=== PATIENT | male | born 1950 | race Caucasian/White ===

== ENCOUNTER 2024-12-29 13:03 | Inpatient (IN) ==
[2024-12-29] MEDS: 0.9 % SODIUM CHLORIDE 1,000 ML IV ONE ×3 (13:52→16:49)
[2024-12-29 14:06] LABS: Basophils # (Auto) 0.01 K/mcL (0.00-0.30); Basophils % (Auto) 0.1 % (0.0-2.0); Eosinophils # (Auto) 0 K/mcL (0.00-0.70); Eosinophils % (Auto) 0 % (0.0-7.0); Hematocrit 52.1 % (40.1-51.0); Hemoglobin 17.8 g/dL (13.7-17.5); Lymphocytes # (Auto) 0.64 K/mcL (1.50-4.80); Lymphocytes % (Auto) 5.3 % (15.5-49.0); Mean Corpuscular HGB Conc 34.2 g/dL (31.0-36.0); Monocytes # (Auto) 0.21 K/mcL (0.10-0.90); Monocytes % (Auto) 1.7 % (1.0-12.0); Neutrophils % (Auto) 92.7 % (38.0-78.0); Platelet Count 203 K/mcL (140-440); RBC 5.72 M/mcL (4.63-6.08); WBC 12.2 K/mcL (4.5-11.0)
[2024-12-29 14:40] LABS: Thyroid Stimulating Hormone 1.32 uIU/mL (0.27-5.01)
[2024-12-29 15:04] LABS: ALT/SGPT 37 U/L (<40); AST/SGOT 20 U/L (<40); Albumin 4.4 gm/dL (3.2-5.2); Albumin/Globulin Ratio 1.3 (1.0-2.3); Alkaline Phosphatase 147 U/L (39-117); Anion Gap 27.0 (8.0-16.0); Bilirubin,Total 1.0 mg/dL (0.1-1.0); Blood Urea Nitrogen 65 mg/dL (8-23); Calcium 10.6 mg/dL (8.6-10.4); Carbon Dioxide 18 mmol/L (22-30); Chloride 83 mmol/L (96-108); Globulin 3.3 gm/dL (2.2-3.7); Glucose 1155 mg/dL (70-105); Potassium 4.3 mmol/L (3.3-5.1); Sodium 128 mmol/L (133-145)
[2024-12-29] MEDS: INSULIN REGULAR, HUMAN 1 UNIT/0.01 ML UNIT IV ONE (15:14)
[2024-12-29 16:15] LABS: Bacteria,Urine Rare /hpf (0); Bilirubin,Urine Negative (Negative); Color,Urine Yellow; Glucose,Urine (UA) >=1000 mg/dL (Negative); Ketones,Urine 15 mg/dL (Negative); Leukocyte Esterase,Urine Negative /uL (Negative); Mucus,Urine Few /hpf; PH,Urine 5.0 (5.0-9.0); Protein,Urine 100 mg/dL (Negative); Specific Gravity,Urine 1.010 (1.000-1.035); Urobilinogen,Urine Normal
[2024-12-29] MEDS: INSULIN REGULAR, HUMAN 50 UNIT in 0.9 % SODIUM CHLORIDE 99.5 ML IV SCH (16:40)
[2024-12-29 17:42] LABS: Estimated Average Glucose(eAG) 381.0 mg/dL; Hemoglobin A1C 14.9 % Hgb (4.0-6.0)
[2024-12-29 19:25] LABS: Anion Gap 18.0 (8.0-16.0); Blood Urea Nitrogen 58 mg/dL (8-23); Calcium 10.0 mg/dL (8.6-10.4); Carbon Dioxide 20 mmol/L (22-30); Chloride 101 mmol/L (96-108); Glucose 659 mg/dL (70-105); Potassium 3.5 mmol/L (3.3-5.1); Sodium 139 mmol/L (133-145)
[2024-12-29] MEDS ORDERED: ACETAMINOPHEN 325 MG TABLET PO PRN (19:29)
[2024-12-29] MEDS: ONDANSETRON 4 MG/2 ML VIAL ONE (19:50)
[2024-12-29] MEDS: ONDANSETRON 4 MG/2 ML VIAL IV PRN (19:50)
[2024-12-29] MEDS: 0.45 % SODIUM CHLORIDE 1,000 ML IV SCH (20:00)
[2024-12-29 20:07] LABS: Creatine Kinase 104.0 U/L (24-195)
[2024-12-29] MEDS: HEPARIN 5,000 UNIT/ML VIAL SQ SCH (20:32)
[2024-12-29] MEDS: NYSTATIN 500,000 UNITS/5 ML ORAL.SUSP SSW SCH (20:32)
[2024-12-29 20:34] LABS: Albumin 4.0 gm/dL (3.2-5.2); Anion Gap 19.0 (8.0-16.0); Blood Urea Nitrogen 59.0 mg/dL (8-23); Calcium 10.0 mg/dL (8.6-10.4); Carbon Dioxide 19.0 mmol/L (22-30); Chloride 101.0 mmol/L (96-108); Glucose 664.0 mg/dL (70-105); Phosphorous 2.3 mg/dL (2.5-4.5); Potassium 3.5 mmol/L (3.3-5.1); Sodium 139.0 mmol/L (133-145)
[2024-12-29] MEDS: 0.9 % SODIUM CHLORIDE 10 ML SYRINGE IV SCH (20:56)
[2024-12-29] MEDS: INSULIN REGULAR, HUMAN 1 UNIT/0.01 ML UNIT ONE (21:59)
[2024-12-30 01:02] LABS: Albumin 4.1 gm/dL (3.2-5.2); Anion Gap 15.0 (8.0-16.0); Blood Urea Nitrogen 54 mg/dL (8-23); Calcium 10.3 mg/dL (8.6-10.4); Carbon Dioxide 22 mmol/L (22-30); Chloride 110 mmol/L (96-108); Glucose 322 mg/dL (70-105); Phosphorous 2.5 mg/dL (2.5-4.5); Potassium 3.5 mmol/L (3.3-5.1); Sodium 147 mmol/L (133-145)
[2024-12-30] MEDS ORDERED: DEXTROSE 50% 50 ML VIAL IV PRN (01:25)
[2024-12-30] MEDS ORDERED: DEXTROSE 31 GM ORAL.SUSP PO PRN (01:25)
[2024-12-30] MEDS: INSULIN GLARGINE, HUMAN 1 UNIT/0.01 ML SQ ONE ×2 (01:29→01:33)
[2024-12-30] MEDS: INSULIN LISPRO 1 UNIT/0.01 ML UNIT SQ SCH ×3 (02:17→16:42)
[2024-12-30] MEDS: INSULIN LISPRO 1 UNIT/0.01 ML UNIT SQ ONE ×4 (02:33→07:53)
[2024-12-30 03:39] LABS: Basophils # (Auto) 0.04 K/mcL (0.00-0.30); Basophils % (Auto) 0.3 % (0.0-2.0); Eosinophils # (Auto) 0.03 K/mcL (0.00-0.70); Eosinophils % (Auto) 0.2 % (0.0-7.0); Hematocrit 49.5 % (40.1-51.0); Hemoglobin 16.8 g/dL (13.7-17.5); Lymphocytes # (Auto) 1.66 K/mcL (1.50-4.80); Lymphocytes % (Auto) 12.0 % (15.5-49.0); Mean Corpuscular HGB Conc 33.9 g/dL (31.0-36.0); Monocytes # (Auto) 1.01 K/mcL (0.10-0.90); Monocytes % (Auto) 7.3 % (1.0-12.0); Neutrophils % (Auto) 79.9 % (38.0-78.0); Platelet Count 194 K/mcL (140-440); RBC 5.43 M/mcL (4.63-6.08); WBC 13.8 K/mcL (4.5-11.0)
[2024-12-30 03:56] LABS: Albumin 3.9 gm/dL (3.2-5.2); Anion Gap 15.0 (8.0-16.0); Blood Urea Nitrogen 55 mg/dL (8-23); Calcium 9.9 mg/dL (8.6-10.4); Carbon Dioxide 22 mmol/L (22-30); Chloride 109 mmol/L (96-108); Glucose 232 mg/dL (70-105); Phosphorous 3.6 mg/dL (2.5-4.5); Potassium 3.5 mmol/L (3.3-5.1); Sodium 146 mmol/L (133-145)
[2024-12-30 08:31] LABS: Albumin 3.8 gm/dL (3.2-5.2); Anion Gap 15.0 (8.0-16.0); Blood Urea Nitrogen 53 mg/dL (8-23); Calcium 9.8 mg/dL (8.6-10.4); Carbon Dioxide 21 mmol/L (22-30); Chloride 108 mmol/L (96-108); Glucose 312 mg/dL (70-105); Phosphorous 3.2 mg/dL (2.5-4.5); Potassium 3.7 mmol/L (3.3-5.1); Sodium 144 mmol/L (133-145)
[2024-12-30] MEDS: INSULIN GLARGINE, HUMAN 1 UNIT/0.01 ML SQ SCH (08:54)
[2024-12-30] MEDS ORDERED: INSULIN GLARGINE, HUMAN 1 UNIT/0.01 ML SQ SCH (09:00)
[2024-12-30] MEDS ORDERED: LIDOCAINE VISCOUS 2% 15 ML UNIT DOSE CUP PO PRN (10:20)
[2024-12-30] MEDS: PANTOPRAZOLE 40 MG PACKET PO SCH (11:24)
[2024-12-30] MEDS: FLUCONAZOLE 100 MG TABLET PO ONE (11:38)
[2024-12-30] MEDS: PANTOPRAZOLE 40 MG VIAL IV SCH (11:38)
[2024-12-30 12:03] LABS: Albumin 3.8 gm/dL (3.2-5.2); Anion Gap 13.0 (8.0-16.0); Blood Urea Nitrogen 50 mg/dL (8-23); Calcium 9.6 mg/dL (8.6-10.4); Carbon Dioxide 22 mmol/L (22-30); Chloride 107 mmol/L (96-108); Glucose 362 mg/dL (70-105); Phosphorous 2.6 mg/dL (2.5-4.5); Potassium 3.7 mmol/L (3.3-5.1); Sodium 142 mmol/L (133-145)
[2024-12-30 16:09] LABS: Albumin 3.7 gm/dL (3.2-5.2); Anion Gap 12.0 (8.0-16.0); Blood Urea Nitrogen 47 mg/dL (8-23); Calcium 9.5 mg/dL (8.6-10.4); Carbon Dioxide 23 mmol/L (22-30); Chloride 107 mmol/L (96-108); Glucose 289 mg/dL (70-105); Phosphorous 2.2 mg/dL (2.5-4.5); Potassium 3.5 mmol/L (3.3-5.1); Sodium 142 mmol/L (133-145)
[2024-12-30] MEDS: ADENOSINE 3 MG/ML VIAL IV ONE ×2 (16:24)
[2024-12-30] MEDS: POTASSIUM CHLORIDE 20 MEQ TABLET PO ONE ×2 (16:42→16:43)
[2024-12-30] MEDS: LACTOPEROXI/GLUC OXID/POT THIO 1 EACH GEL..EA. TOPICAL PRN (16:43)
[2024-12-30] MEDS: METOPROLOL SUCCINATE 50 MG TAB.XL.24H PO SCH ×2 (17:18→17:19)
[2024-12-31 06:31] LABS: Basophils # (Auto) 0.03 K/mcL (0.00-0.30); Basophils % (Auto) 0.3 % (0.0-2.0); Eosinophils # (Auto) 0.10 K/mcL (0.00-0.70); Eosinophils % (Auto) 1.1 % (0.0-7.0); Hematocrit 49.3 % (40.1-51.0); Hemoglobin 16.4 g/dL (13.7-17.5); Lymphocytes # (Auto) 2.04 K/mcL (1.50-4.80); Lymphocytes % (Auto) 23.2 % (15.5-49.0); Mean Corpuscular HGB Conc 33.3 g/dL (31.0-36.0); Monocytes # (Auto) 0.55 K/mcL (0.10-0.90); Monocytes % (Auto) 6.3 % (1.0-12.0); Neutrophils % (Auto) 68.9 % (38.0-78.0); Platelet Count 142 K/mcL (140-440); RBC 5.22 M/mcL (4.63-6.08); WBC 8.8 K/mcL (4.5-11.0)
[2024-12-31 07:39] LABS: ALT/SGPT 38 U/L (<40); AST/SGOT 33 U/L (<40); Albumin 3.5 gm/dL (3.2-5.2); Albumin/Globulin Ratio 1.3 (1.0-2.3); Alkaline Phosphatase 72 U/L (39-117); Anion Gap 14.0 (8.0-16.0); Bilirubin,Direct 0.3 mg/dL (<0.3); Bilirubin,Total 0.9 mg/dL (0.1-1.0); Blood Urea Nitrogen 42 mg/dL (8-23); Calcium 9.2 mg/dL (8.6-10.4); Carbon Dioxide 21 mmol/L (22-30); Chloride 107 mmol/L (96-108); Globulin 2.7 gm/dL (2.2-3.7); Glucose 314 mg/dL (70-105); Phosphorous 3.3 mg/dL (2.5-4.5); Potassium 3.8 mmol/L (3.3-5.1); Sodium 142 mmol/L (133-145); Triglycerides 418 mg/dL (<150); Uric Acid 9.9 mg/dL (2.5-8.0)
[2024-12-31] MEDS: INSULIN LISPRO 1 UNIT/0.01 ML UNIT SQ SCH ×2 (07:43→07:45)
[2024-12-31] MEDS: INSULIN GLARGINE, HUMAN 1 UNIT/0.01 ML SQ SCH (08:55)
[2024-12-31] MEDS: ATORVASTATIN 10 MG TABLET PO SCH (08:56)
[2024-12-31] MEDS: FINASTERIDE 5 MG TABLET PO SCH (08:56)
[2024-12-31] MEDS: LEVOTHYROXINE 25 MCG TABLET PO SCH (08:56)
[2024-12-31] MEDS ORDERED: INSULIN GLARGINE, HUMAN 1 UNIT/0.01 ML SQ SCH (09:00)
[2024-12-31] MEDS ORDERED: FLUCONAZOLE 100 MG TABLET PO SCH (09:00)
[2024-12-31] MEDS: METOPROLOL TARTRATE 5 MG/5 ML VIAL IV ONE (14:12)
[2024-12-31] MEDS: METOPROLOL SUCCINATE 50 MG TAB.XL.24H PO ONE (17:06)
[2024-12-31] MEDS ORDERED: METOPROLOL SUCCINATE 50 MG TAB.XL.24H PO SCH (21:00)
[2025-01-01 06:18] LABS: ALT/SGPT 36 U/L (<40); AST/SGOT 27 U/L (<40); Albumin 3.4 gm/dL (3.2-5.2); Albumin/Globulin Ratio 1.4 (1.0-2.3); Alkaline Phosphatase 68 U/L (39-117); Anion Gap 12.0 (8.0-16.0); Bilirubin,Direct 0.3 mg/dL (<0.3); Bilirubin,Total 0.9 mg/dL (0.1-1.0); Blood Urea Nitrogen 36 mg/dL (8-23); Calcium 8.7 mg/dL (8.6-10.4); Carbon Dioxide 21 mmol/L (22-30); Chloride 107 mmol/L (96-108); Globulin 2.4 gm/dL (2.2-3.7); Glucose 237 mg/dL (70-105); Phosphorous 3.0 mg/dL (2.5-4.5); Potassium 3.3 mmol/L (3.3-5.1); Sodium 140 mmol/L (133-145); Triglycerides 362 mg/dL (<150); Uric Acid 8.5 mg/dL (2.5-8.0)
[2025-01-01] MEDS: POTASSIUM CHLORIDE 20 MEQ TABLET PO ONE (07:55)
[2025-01-01] MEDS: METOPROLOL SUCCINATE 50 MG TAB.XL.24H PO SCH (08:16)
[2025-01-01] MEDS ORDERED: FLUCONAZOLE 100 MG TABLET PO SCH (09:00)
== END 2025-01-01 12:57 | disposition home or self-care (01) | DRG 638 ==
LOC: ED 13:03 → ICU 19:22
PROVIDERS: ADMIT Internal Medicine; ATTEND Internal Medicine